=== PATIENT | male | born 1955 | race Caucasian/White ===

== ENCOUNTER → 2019-01-11 | Outpatient (CLI) | payer OTHER ==
--- NOTE | 2019-01-11 16:10 | Diagnostic Imaging Report ---
Exam: Left foot 3 views History: Pain Comparison: None. Findings: Oblique fracture proximal phalanx of the hallux with probable mild intra-articular extension. No displacement. Bipartite tibial sesamoid. Place. Impression: Oblique fracture proximal phalanx of the hallux with probable mild intra-articular extension. No displacement. Signed by: Dr. Josue Collins M.D. on 01/11/2019 4:06 PM
== END ==
LOC: RAD 15:20
PROVIDERS: ATTEND Family Medicine
DX: S92.412A Displaced fracture of proximal phalanx of left great toe, initial encounter for closed fracture (principal); S90.112A Contusion of left great toe without damage to nail, initial encounter

== ENCOUNTER 2022-01-02 21:11 | Observation (INO) | payer MEDICARE ==
[~2022-01-02] VITALS: Ht 198.1 cm; Wt 145.1 kg
[2022-01-02] MEDS ORDERED: ONDANSETRON HCL INJ 2MG/ML 2ML 2 MG/ML VIAL IV PRN (22:15)
[2022-01-02] MEDS ORDERED: ASPIRIN 81 MG CHEW TAB PO ONE (22:15)
[2022-01-03 00:28] VITALS: BP 148/74
[2022-01-03 01:00] VITALS: BP_SYST 140; BP_SYST 148; BP_DIAS 70; BP_DIAS 74
[2022-01-03] MEDS ORDERED: XARELTO20 MG PO (02:43)
[2022-01-03] MEDS ORDERED: HYDROCHLOROTHIA50 MG PO (02:43)
[2022-01-03] MEDS ORDERED: FEROSUL325 MG PO (02:43)
[2022-01-03] MEDS ORDERED: LEVOTHYROXINE25 MCG PO (02:43)
[2022-01-03] MEDS ORDERED: ATORVASTATIN CA80 MG PO (02:43)
[2022-01-03] MEDS ORDERED: LOSARTAN POTASS25 MG PO (02:43)
[2022-01-03] MEDS ORDERED: METFORMIN HCL500 MG PO (02:43)
[2022-01-03 04:00] VITALS: BP 140/68
[2022-01-03 08:06] VITALS: BP 138/68
[2022-01-03 08:12] LABS: BASOPHILS # (AUTO) 0.1 (0.0-0.1); BASOPHILS % 0.6 % (0.0-1.0); EOSINOPHILS # (AUTO) 0.2 (0.0-0.4); EOSINOPHILS % 1.9 % (0.0-6.0); HEMATOCRIT 37.6 % (38.2-49.6); HEMOGLOBIN 13.2 g/dL (14.0-18.0); LYMPHOCYTES # (AUTO) 3.1 (1.0-3.2); LYMPHOCYTES % 32.4 % (18.0-39.1); MEAN CORPUSCULAR HGB CONC 35.1 g/dL (31-35); MEAN CORPUSCULAR VOLUME 85.5 fL (81-99); MONOCYTES # (AUTO) 0.8 (0.2-0.8); MONOCYTES % 7.9 % (4.4-11.3); NEUTROPHILS # (AUTO) 5.4 (2.1-6.9); NEUTROPHILS % 56.9 % (38.7-80.0); PLATELET COUNT 187 x10e3/uL (140-360); RED CELL DISTRIBUTION WIDTH 12.7 % (11.7-14.4)
[2022-01-03 08:35] LABS: CHOL/HDL RATIO 3.1 (3.9-4.7)
[2022-01-03 08:38] LABS: ALBUMIN 3.7 g/dL (3.5-5.0); ALBUMIN/GLOBULIN RATIO 1.1 (0.8-2.0); CALCIUM 8.8 mg/dL (8.4-10.2); CREATININE, SERUM 0.74 mg/dL (0.72-1.25)
[2022-01-03] MEDS ORDERED: ACETAMINOPHEN 325 MG TAB PO PRN (08:45)
[2022-01-03 08:58] LABS: CREATINE KINASE MB 0.8 ng/mL (0-5.0); THYROID STIMULATING HORMONE 3.616 uIU/mL (0.350-4.940)
[2022-01-03] MEDS ORDERED: DOCUSATE SODIUM 100 MG CAP PO SCH (09:00)
[2022-01-03] MEDS ORDERED: SENNOSIDES 8.6 MG TAB PO SCH (09:00)
[2022-01-03] MEDS ORDERED: ONDANSETRON HCL 4 MG ORAL DISINTEGRATING TAB PO PRN (09:15)
[2022-01-03] MEDS ORDERED: DEXTROSE 50% SYRINGE 50 ML IV PRN (10:00)
[2022-01-03] MEDS ORDERED: POTASSIUM CHLORIDE 20 MEQ TAB CR PO ONE (10:30)
[2022-01-03] MEDS: INSULIN REGULAR, HUMAN 100 UNIT/1 ML SQ SCH ×2 (11:30→16:30)
[2022-01-03 12:06] VITALS: BP 133/72
[2022-01-03] MEDS ORDERED: RIVAROXABAN 20 MG TABLET PO SCH ×2 (12:15→17:00)
[2022-01-03 15:49] VITALS: BP 155/69
[2022-01-03] MEDS ORDERED: ATORVASTATIN 40 MG TAB PO SCH (21:00)
[2022-01-04] MEDS ORDERED: LEVOTHYROXINE SODIUM 25 MCG TABLET PO SCH (06:00)
== END 2022-01-03 18:14 | disposition home or self-care (01) ==
LOC: FSED 21:31 → ERHOLD 22:17 → MED/SURG 01-03 00:35
PROVIDERS: ADMIT Internal Medicine; ATTEND Internal Medicine
DX: R00.1 Bradycardia, unspecified (principal); I10 Essential (primary) hypertension; I25.110 Atherosclerotic heart disease of native coronary artery with unstable angina pectoris; E87.6 Hypokalemia; E66.9 Obesity, unspecified; E11.59 Type 2 diabetes mellitus with other circulatory complications; E78.2 Mixed hyperlipidemia; G47.33 Obstructive sleep apnea (adult) (pediatric); I48.91 Unspecified atrial fibrillation; E11.42 Type 2 diabetes mellitus with diabetic polyneuropathy; Z95.5 Presence of coronary angioplasty implant and graft; Z96.651 Presence of right artificial knee joint; Z88.8 Allergy status to other drugs, medicaments and biological substances; Z68.37 Body mass index [BMI] 37.0-37.9, adult; Z79.84 Long term (current) use of oral hypoglycemic drugs; Z79.01 Long term (current) use of anticoagulants; Z82.5 Family history of asthma and other chronic lower respiratory diseases; Z20.822 Contact with and (suspected) exposure to COVID-19
CPT/HCPCS: 36415; 71045; 71260; 80048; 80053; 80061; 82550; 82553; 82948; 83036; 84443; 84484 ×2; 85025 ×2; 93005 ×2; 93306; 94799; 97116; 97161; 99251; 99284; G0378 ×2; U0002

== ENCOUNTER → 2024-05-16 | Day surgery (SDC) | payer MEDICARE ==
[2024-05-06 10:38] LABS: BASOPHILS # (AUTO) 0.1 (0.0-0.1); BASOPHILS % 0.5 % (0.0-1.0); EOSINOPHILS # (AUTO) 0.3 (0.0-0.4); EOSINOPHILS % 2.6 % (0.0-6.0); HEMATOCRIT 40.2 % (38.2-49.6); HEMOGLOBIN 12.7 g/dL (14.0-18.0); LYMPHOCYTES # (AUTO) 3.4 (1.0-3.2); LYMPHOCYTES % 32.6 % (18.0-39.1); MEAN CORPUSCULAR HGB CONC 31.6 g/dL (31-35); MONOCYTES # (AUTO) 0.8 (0.2-0.8); MONOCYTES % 8.1 % (4.4-11.3); NEUTROPHILS # (AUTO) 5.8 (2.1-6.9); NEUTROPHILS % 55.8 % (38.7-80.0); PLATELET COUNT 229 x10e3/uL (140-360); RED BLOOD COUNT 4.23 x10e6/uL (4.3-5.7); RED CELL DISTRIBUTION WIDTH 13.7 % (11.7-14.4); WHITE BLOOD COUNT 10.32 x10e3/uL (4.8-10.8)
[~2024-05-16] MED LIST: ATORVASTATIN CA80 MG PO; CARVEDILOL3.125 MG PO; CLARITIN10 MG PO; CLOPIDOGREL75 MG PO; D3-5000125 MCG PO; FEROSUL325 MG PO; FLECAINIDE ACE100 MG PO; FOLIC ACID0.4 MG PO; FUROSEMIDE40 MG PO; HEALTHY HEART1 EACH; HYDROCHLOROTHIA50 MG PO; LEVOTHYROXINE25 MCG PO; LIDOCAINE HCL 2% LOCAL INJ 5 ML SDV VIAL INJ ONE; LOSARTAN POTAS100 MG PO; LOSARTAN POTASS25 MG PO; METFORMIN HCL500 MG PO; ONE DAILY COMP1 EACH; PANTOPRAZOLE SO40 MG PO; POTASSIUM CHLO10 ME1 PO; PROPOFOL IV EMULSION 10 MG/ML 20 ML VIAL ONE; PROPOFOL IV EMULSION 50 ML IV ONE; SLOW-MAG64 MG PO; TRILEPTAL600 MG PO; XARELTO20 MG PO
[2024-05-16] MEDS: LACTATED RINGER'S 1,000 ML ONE (12:50)
[2024-05-16 13:34] VITALS: TEMP 97
[2024-05-16 13:55] VITALS: BP 145/89; PULSE 69; RESP 18; O2SAT 99
[2024-05-16 15:38] LABS: WBC,FECAL (FECAL LACTOFERRIN) POSITIVE (NEGATIVE)
[2024-05-16 15:50] LABS: CDIFF AG QUIK CHEK NEGATIVE (NEGATIVE); CDIFF TOX QUIK CHEK NEGATIVE (NEGATIVE)
[2024-05-17 12:31] LABS: C-REACTIVE PROTEIN 8 mg/L (0-10)
[2024-05-22 15:08] LABS: ENDOMYSIAL ANTIBODIES, IGA Negative (Negative)
[2024-05-22 21:35] LABS: IMMUNOGLOBULIN A 274 mg/dL (61-437); TISSUE TRANSGLUTAMINASE IGA AB <2 U/mL (0-3)
== END | disposition home or self-care (01) ==
LOC: OR 10:31
PROVIDERS: ATTEND Internal Medicine Gastroenterology
DX: K21.00 Gastro-esophageal reflux disease with esophagitis, without bleeding (principal); K29.60 Other gastritis without bleeding; T45.4X5A Adverse effect of iron and its compounds, initial encounter; K29.50 Unspecified chronic gastritis without bleeding; D12.2 Benign neoplasm of ascending colon; K52.9 Noninfective gastroenteritis and colitis, unspecified; K62.89 Other specified diseases of anus and rectum; K64.8 Other hemorrhoids; I10 Essential (primary) hypertension; E03.9 Hypothyroidism, unspecified; E78.5 Hyperlipidemia, unspecified; G47.33 Obstructive sleep apnea (adult) (pediatric); I48.91 Unspecified atrial fibrillation; Z79.01 Long term (current) use of anticoagulants; E11.42 Type 2 diabetes mellitus with diabetic polyneuropathy; Z79.84 Long term (current) use of oral hypoglycemic drugs; I49.3 Ventricular premature depolarization; Z95.0 Presence of cardiac pacemaker; Z01.812 Encounter for preprocedural laboratory examination; Z01.810 Encounter for preprocedural cardiovascular examination; Z79.899 Other long term (current) drug therapy
CPT/HCPCS: 36415; 43239; 43450; 45380; 82784; 83516; 83630; 83993; 85025; 86140; 86256; 87045; 87177; 87324; 87328; 87449; 93005; J2003; J2470; J2704 ×2; J7121; 45378